=== PATIENT | male | born 1965 | race Hispanic/Latino ===

== ENCOUNTER 2016-07-07 19:36 | Emergency (ER) | payer BC ==
[2016-07-07] MEDS ORDERED: IBUPROFEN 800 MG TABLET ONE (20:09)
[2016-07-07] MEDS ORDERED: ONDANSETRON 4 MG ODT TAB ONE (20:09)
--- NOTE | 2016-07-08 09:36 | RAD ---
Exam: Two-view chest COMPARISON: None INDICATION: Shortness of breath and cough for 2 weeks. FINDINGS: PA and lateral views of the chest were obtained. Cardiac silhouette is within normal limits. Lung volumes are low. There is slight motion artifact on the lateral view. There is no focal airspace disease or pleural effusion. Bones of the chest wall within normal limits. IMPRESSION: No acute pulmonary process.
== END 2016-07-07 21:20 | disposition home or self-care (01) ==
LOC: ED 19:36
DX: J11.1 Influenza due to unidentified influenza virus with other respiratory manifestations (principal)
CPT/HCPCS: 71020; 99283 ×2; A9270 ×2